=== PATIENT | male | born 1965 | race Caucasian/White ===

== ENCOUNTER 2023-10-22 11:43 | Outpatient (CLI) | payer BC | END 2023-10-22 23:59 | disposition critical access hospital (66) | LOC: EMS 11:43 | DX: S89.92XA Unspecified injury of left lower leg, initial encounter (principal); W01.0XXA Fall on same level from slipping, tripping and stumbling without subsequent striking against object, initial encounter; Y92.000 Kitchen of unspecified non-institutional (private) residence as the place of occurrence of the external cause | CPT/HCPCS: A0425; A0429 ==

== ENCOUNTER 2023-10-22 12:21 | Emergency (ER) | payer BC ==
[2023-10-22 12:34] VITALS: O2SAT 100
[2023-10-22] MEDS: HYDROmorphone 1 MG/ML CARPUJECT IVP STA (12:43)
--- NOTE | 2023-10-22 13:08 | ED Physician Documentation ---
PD HPI LOWER EXT INJURY - Stated complaint Stated Complaint: KNEE INJURY - Chief complaint Chief Complaint: Trauma Ext - History obtained from History obtained from: Patient - Additional information Additional information: The pt comes to the ED with CC of L knee pain and swelling after a GLF just prior to coming to the ED. The pt states he had just had his floors mopped, and he stepped onto the wet floor and slipped. He's not sure exactly how he landed, but that he came down on his L knee and immediately felt pain. Medics report deformity at the patella. Pt denies other injuries or complaints. PD PAST MEDICAL HISTORY - Past Medical History Past Medical History: Yes Cardiovascular: High cholesterol Respiratory: None Neuro: None Endocrine/Autoimmune: None GI: None : Other HEENT: None Psych: None Musculoskeletal: None Derm: None Other Past Medical History: prostate cancer. - Past Surgical History Past Surgical History: Yes - Present Medications Home Medications: Ambulatory Orders Medication Instructions Recorded Confirmed HYDROcod/ACETAM 5/325 [[place] 5/325] 1 - 2 tablet PO Q6H PRN #20 tablet 10/22/23 Rosuvastatin Calcium 10 mg PO DAILY 10/22/23 10/22/23 Tadalafil [Cialis] 5 mg PO DAILY 10/22/23 10/22/23 - Allergies Allergies/Adverse Reactions: Allergies Allergy/AdvReac Type Severity Reaction Status Date / Time Sulfa (Sulfonamide Allergy Hives Verified 10/22/23 12:27 Antibiotics) - Social History Does the pt smoke?: No Smoking Status: Never smoker Does the pt drink ETOH?: Yes Does the pt have substance abuse?: No - Immunizations Immunizations are current?: Yes - POLST Patient has POLST: No PD ED PE NORMAL - Vitals Vital signs reviewed: Yes - General General: Alert and oriented X 3, No acute distress, Well developed/nourished, Other (appears uncomfortable) - HEENT HEENT: Atraumatic, EOMI, Moist mucous membranes - Neck Neck: Supple, no meningeal sign - Cardiac Cardiac: Strong equal pulses - Respiratory Respiratory: No respiratory distress - Derm Derm: Warm and dry, Other (Contusion about L knee anteriorly.) - Extremities Extremities: Other (Absence of patellar contours with hollowness and exquisite tenderness anteriorly at joint line. Patella high-riding. Unable to maintain extension while lifting leg. Remainder of knee joint is stable.) - Neuro Neuro: Alert and oriented X 3, No motor deficit, No sensory deficit - Psych Psych: Normal mood, Normal affect Results - Vitals Vitals: Vital Signs - 24 hr 10/22/23 10/22/23 12:27 14:07 Temperature 36.8 C Heart Rate 66 73 Respiratory 16 18 Rate Blood Pressure 132/92 H 131/77 H O2 Saturation 100 100 Oxygen O2 Source Room air - Rads (name of study) L knee XR series Relevant Findings:: Final report received, See rad report (fractured and distracted patella. No dislocation or fracture of the remainder of the knee.) Procedures - Splint (location) - Minor Knee immobilizer Splint applied by: Nurse Type of splint: Long leg (knee immobilizer) Other: Patient tolerated well, No complications, Neurovascular intact, Crutches provided PD Medical Decision Making - ED course Complexity details: reviewed results, re-evaluated patient, considered differential, d/w patient ED course: The pt was sent for XR series of the L knee, which demonstrated a transverse patellar dislocation with distraction, which explained the pt's symptoms. I discussed the case with Dr. Rico, who was industrial conveyor belt repairer for orthopedics. He did come see the pt in the ED, and offered him operative management today. However, the pt wished to get a second opinion in [place], where the pt already receives care. The pt was able to make an appointment for tomorrow. He has also been given Dr. Rico's clinic contact info in case the pt decides to have his surgery here after all. Per Dr. Rico's instructions, the pt was placed in a knee immobilizer, and was advised that he may bear some weight, but only with the immobilizer and preferably, crutches. Departure - Departure Disposition: 01 Home, Self Care Clinical Impression: Patellar fracture Qualifiers: Encounter type: initial encounter Fracture type: closed Fracture morphology: transverse Fracture alignment: displaced Laterality: left Qualified Code(s): S82.032A - Displaced transverse fracture of left patella, initial encounter for closed fracture Condition: Stable Instructions: ED Fx Patella Prescriptions: HYDROcod/ACETAM 5/325 [[place] 5/325] 1 - 2 tablet PO Q6H PRN #20 tablet PRN Reason: Pain Comments: You have a break all the way through your kneecap which has taken away your ability to straighten your knee and is interfering with your quadriceps function. This sort of fracture is treated with surgery. You have been offered surgery here by Dr. Rico, orthopedist, but you would like to pursue care elsewhere. It is important that you arrange follow up for as soon as possible, as you should be seen by orthopedics in the next week or so. A prescription for pain medication has been electronically transmitted to the [facility] in [place]. If you change your mind about having Dr. Rico do your surgery, you may reach out to his office. Otherwise, you should wear the knee immobilizer at all times. If you are up and about, and using the knee immobilizer and crutches, Dr. Rico says you may bear some weight. Forms: PCP List Discharge Date/Time: 10/22/23 15:52
--- NOTE | 2023-10-22 13:12 | XRAY Report ---
PROCEDURE: Knee 2V LT INDICATIONS: fall/pain/patellar lig rupture suspected TECHNIQUE: 2 views of the knee(s) were acquired. COMPARISON: None. FINDINGS: Bones: Acute distracted horizontal fracture of the patella. No suspicious bony lesions. Soft tissues: Positive knee joint effusion. No suspicious soft tissue calcifications or masses. IMPRESSION: Acute distracted horizontal fracture of the patella. Reviewed by: Sigifredo Raymond MD on 10/22/2023 1:11 PM PDT Approved by: Sigifredo Raymond MD on 10/22/2023 1:11 PM PDT Station ID: [id number]
[2023-10-22 14:11] VITALS: BP 131/77
--- NOTE | 2023-10-22 14:28 | CONSULTATION NOTE ---
Referring Provider Name of Referring Provider:: Dr. Hutchinson Consult Date: 10/22/23 History of Present Illness - History of Present Illness HPI Comment/Other: Mr. Justen Malcolm is a 58-year-old male who sustained an injury to his left knee this morning. He apparently slipped on the wet floor at his home and had a hyper flexion type injury to his knee. No prior knee problems. Noted immediate deformity and pain in the anterior aspect of his knee. No other injuries are noted. No loss of consciousness or nausea or vomiting. Was taken to the emergency room for an evaluation of this injury. History - Past Medical History Cardiovascular: reports: High cholesterol Respiratory: reports: None Neuro: reports: None Endocrine/Autoimmune: reports: None GI: reports: None : reports: Other HEENT: reports: None Psych: reports: None Musculoskeletal: reports: None Derm: reports: None MRSA Hx?: No Other Past Medical History: prostate cancer. - POLST Patient has POLST: No Meds/Allgy - Home Medications Home Medications: Ambulatory Orders Medication Instructions Recorded Confirmed Rosuvastatin Calcium 10 mg PO DAILY 10/22/23 10/22/23 Tadalafil [Cialis] 5 mg PO DAILY 10/22/23 10/22/23 - Allergies Allergies/Adverse Reactions: Allergies Allergy/AdvReac Type Severity Reaction Status Date / Time Sulfa (Sulfonamide Allergy Hives Verified 10/22/23 12:27 Antibiotics) Exam - Vital Signs Vital Signs: Vital Signs x48h Temp Pulse Resp BP Pulse Ox 10/22/23 14:07 73 18 131/77 H 100 10/22/23 12:27 36.8 C 66 16 132/92 H 100 - Physical Exam Comments/Other: Examination: Patient's left knee shows mild swelling in the anterior aspect the knee. There is a palpable gap between his patella fragments. There is some tenderness about the patella fragments as well. Neurovascular is to be intact distally. X-rays: Recent films were reviewed and shows evidence of a patella Baha the proximal patella fragment as well as a small inferior pole fragment of his patella Conclusion/Plan - Problem List (1) Left patella fracture Conclusion/Plan: Plan: Discussed at length with the patient and his treatment options for his distracted left patella fracture. These primarily with included attempted open reduction internal fixation of fraction using tension band wire technique. If fragment is too small or too comminuted at the time of our surgery that this is difficult to do we will excise the smaller patella fragment and reattach the patella tendon into the major fragment. The main concern was whether this needed to be done as an emergent basis or whether this can be done at the later time. Explained to them that there is no necessity to do this later today or even in the next few days but would recommend this procedure and within the next 2 weeks. At this point they wanted to have this treated in a knee immobilizer pain medicines and crutches weightbearing as tolerated on the extremity while they explore other options. They are considering getting a second opinion at [facility] orthopedic department and will then make the decision on how best to proceed. Qualifiers: Encounter type: initial encounter
[2023-10-22] MEDS: HYDROcod/ACETAM 5/325 MG TABLET PO STA (15:07)
== END 2023-10-22 15:52 | disposition home or self-care (01) ==
LOC: ED 12:21
DX: S82.032A Displaced transverse fracture of left patella, initial encounter for closed fracture (principal); W01.0XXA Fall on same level from slipping, tripping and stumbling without subsequent striking against object, initial encounter; Y93.E5 Activity, floor mopping and cleaning; E78.00 Pure hypercholesterolemia, unspecified; Z85.46 Personal history of malignant neoplasm of prostate
CPT/HCPCS: 73560; 96374; 99284; A9270; J1170